=== PATIENT | male | born 1950 | race Caucasian/White ===

== ENCOUNTER → 2023-06-27 06:53 | Outpatient (REF) | payer MEDICARE, OTHER, SELFPAY ==
[2023-06-27 07:35] LABS: % Basophils 0.9 % (0-2); % Immature Granulocytes 0.5 % (0-0.5); % Lymphocytes 22.5 % (20.5-51.1); % Neutrophils 63.1 % (42.2-75.2); Absolute Basophils 0.1 10^3/uL (0-0.2); Absolute Eosinophils 0.3 10^3/uL (0-0.7); Absolute Lymphocytes 1.3 10^3/uL (1.2-3.4); Absolute Monocytes 0.5 10^3/uL (0.1-0.6); Absolute Neutrophils 3.6 10^3/uL (1.4-6.5); Hematocrit 36.8 % (39.0-52.0); Hemoglobin 12.9 g/dL (13.0-18.0); Mean Corp Hgb Conc. 35.1 g/dL (33.0-37.0); Mean Corpuscular Hgb 30.4 pg (27.0-31.0); Mean Corpuscular Volume 86.8 fL (80.0-94.0); Mean Platelet Volume 9.6 fL (7.4-10.4); Nucleated Red Blood Cells % 0 % (-); Platelet Count 132 10^3/uL (130-400); Red Blood Cell Count 4.24 10^6/uL (4.70-6.10); Red Cell Dist. Width 13.7 % (11.5-14.5); White Blood Cell Count 5.8 10^3/uL (4.8-10.8)
[2023-06-27 08:17] LABS: Urine Albumin Trace (Neg - Trace); Urine Bilirubin Negative (Negative); Urine Character Clear (Clear); Urine Color Yellow; Urine Glucose Negative (Negative); Urine Ketone Negative (Negative); Urine Leukocyte Negative (Negative); Urine Nitrite Negative (Negative); Urine Occult Blood Trace (Negative); Urine Specific Gravity 1.015 (<1.030); Urine Urobilinogen 1+ (Neg - 1+)
[2023-06-27 08:46] LABS: Urine Mucus Few
[2023-06-27 08:47] LABS: Urine Hyaline Cast 0-2 /LPF (0-2)
[2023-06-27 08:48] LABS: Urine Bacteria Few (Negative); Urine Red Blood Cell 0-2 /HPF (0-2); Urine White Cell 0-2 /HPF (0-5)
[2023-06-27 09:09] LABS: Glycohemoglobin (HgbA1c) 7.7 % (4.0-5.6)
[2023-06-27 09:23] LABS: ALT (SGPT) 24 U/L (0-50); AST (SGOT) 31 U/L (17-59); Albumin 4.2 g/dl (3.5-5.0); Alkaline Phosphatase 73 U/L (38-126); Blood Urea Nitrogen 24 mg/dl (9-20); Calcium 9.5 mg/dl (8.4-10.2); Carbon Dioxide 24 mmol/L (22-30); Chloride 105 mmol/L (98-107); Glucose 156 mg/dl (70-99); HDL Cholesterol 27 mg/dl; LDL Cholesterol, Calculated 48 mg/dl; Potassium 4.2 mmol/L (3.5-5.1); Sodium 138 mmol/L (135-145); Total Bilirubin 0.7 mg/dl (0.2-1.3); Total Cholesterol 127 mg/dl (50-199); Total Protein 7.1 g/dl (6.3-8.2); Triglyceride 261 mg/dl (10-149); Very Low Density Lipoprotein 52 mg/dl (0-30); eGFR > 60.00
[2023-06-27 09:37] LABS: TSH 3.79 uIU/ml (0.47-4.68)
== END ==
LOC: REG 06:53
PROVIDERS: ATTENDING PHYSICIAN Internal Medicine Cardiovascular Disease; FAMILY PHYSICIAN Internal Medicine Geriatric Medicine
DX: E11.9 Type 2 diabetes mellitus without complications (principal); E78.2 Mixed hyperlipidemia; I25.10 Atherosclerotic heart disease of native coronary artery without angina pectoris; I48.0 Paroxysmal atrial fibrillation; I10 Essential (primary) hypertension
CPT/HCPCS: 36415; 80053; 80061; 81003; 81015; 83036; 84443; 85025

== ENCOUNTER → 2024-01-01 09:06 | Outpatient (REF) | payer MEDICARE, OTHER, SELFPAY | LOC: RCS 09:06 | PROVIDERS: ATTENDING PHYSICIAN Internal Medicine Cardiovascular Disease; FAMILY PHYSICIAN Internal Medicine Geriatric Medicine | DX: I25.10 Atherosclerotic heart disease of native coronary artery without angina pectoris (principal) | CPT/HCPCS: 93306 ==

== ENCOUNTER → 2024-01-08 06:20 | Outpatient (REF) | payer MEDICARE, OTHER, SELFPAY | LOC: RAD 06:20 | PROVIDERS: ATTENDING PHYSICIAN Internal Medicine Cardiovascular Disease; FAMILY PHYSICIAN Internal Medicine Geriatric Medicine | DX: R09.89 Other specified symptoms and signs involving the circulatory and respiratory systems (principal) | CPT/HCPCS: 93880 ==

== ENCOUNTER → 2024-01-14 06:48 | Outpatient (REF) | payer MEDICARE, OTHER, SELFPAY | LOC: RAD 06:48 | PROVIDERS: ATTENDING PHYSICIAN Internal Medicine Cardiovascular Disease; FAMILY PHYSICIAN Internal Medicine Geriatric Medicine | DX: I65.22 Occlusion and stenosis of left carotid artery (principal) | CPT/HCPCS: 70498; Q9967 ==

== ENCOUNTER 2024-01-29 06:20 | Inpatient (IN) | payer MEDICARE, OTHER, SELFPAY ==
[2024-01-29] VITALS (11 sets, daily range): BP systolic 97–130; BP diastolic 51–79; BMI 38.3
[2024-01-29 07:13] LABS: Glucose - Point of Care 198 mg/dl (70-99)
[2024-01-29 08:33] LABS: ACT-LR - POC 273 Seconds (116-155)
[2024-01-29 09:08] LABS: ACT-LR - POC 192 Seconds (116-155)
[2024-01-29 09:16] LABS: ACT-LR - POC 232 Seconds (116-155)
[2024-01-29 09:24] LABS: ACT-LR - POC 261 Seconds (116-155)
--- NOTE | 2024-01-29 09:53 | ITS.CL.ANGIO ---
[employer] - Angioplasty
Angioplasty
Procedure Report:
CAROTID ANGIOGRAM AND ANGIOPLASTY REPORT
Date of Procedure: 01/29/2024
Referring: Marcus Caro MD
Indication: Severe asymptomatic left ICA stenosis
Operators: Lokesh Joe MD, Marcus Caro MD
�
PROCEDURE SUMMARY:
Successful stenting of 80% calcific left ICA stenosis using 10 x 30 mm Cordis precise stent using distal embolic filter protection
�
DESCRIPTION OF PROCEDURE: 5 [place] sheath was placed in the right femoral artery. Heparin 7000 units was administered. Additional heparin was given during the procedure to maintain an acceptable ACT. An HUMBERTO diagnostic 5 [place] catheter was
advanced to the aortic arch. The left common carotid artery was relatively easily engaged; however, we were unable to pass a standard table J-wire around a 90 degree bend in the proximal left common carotid artery and therefore could not advance
the catheter into the midportion of the left common carotid artery. A 0.035 angled Glidewire was advanced into the distal carotid but this would not advancement of the 5 [place] HUMBERTO catheter as it resulted in prolapse of the system back into the
arch. At this point we attempted using a Quijano 2 diagnostic catheter but could not engage the left carotid with this shape. A LesConciergesek 5 [place]ian diagnostic was advanced into the carotid and using a 0.035 supra core wire we were able to advance this
catheter past the 90 degree turn and perform diagnostic angiography. Angiography showed no significant disease in the proximal or mid common carotid artery. The bifurcation was severely diseased and extending into the left ICA. The stenosis
severity was approximately 80%. The external carotid was severely calcified and subtotally occluded at its origin. In order attempt to pass the 0.035 supra core wire through the diagnostic catheter to make and exchanged for a 6 [place] shuttle
sheath, we lost access and had to reengage the left common carotid with the Vitek and advance a supra core wire more distally into the ICA. The diagnostic catheter was carefully withdrawn and a 6 [place] shuttle sheath was advanced to the origin of
the left common carotid artery. With great fortune we were able to get the shuttle sheath past the 90 degree bend and positioned this in the mid to distal common carotid artery. At this point a BMW wire was easily advanced into the ICA and a 6.0
spider filter embolic protection device was advanced over the wire and positioned in the petrous segment of the left ICA. Full expansion of the basket was verified fluoroscopically. The calcified ostial left ICA lesion was predilated with a 3.0 x
20 NC Emerge balloon to 12 edwin. Balloon expansion was complete with no waist on the balloon. The patient tolerated angioplasty well without bradycardia or hypotension. At this point we passed a 10 x 30 mm Cordis precise stent to completely cover
the disease and the calcified area distal to the lesion. The stent was deployed uneventfully then postdilated with a 5 x 30 mm aviator balloon to 12 edwin. Good expansion of the stented the lesion site occurred. Patient had a very fleeting episode
of asystole following postdilatation which resolved in approximately 2 seconds. Blood pressure remained normal for the entirety of the procedure. The filter was recovered uneventfully and final angiography demonstrated an outstanding angiographic
result. Cerebral angiography demonstrated no evidence of distal embolization. At the conclusion of the procedure the patient remained neurologically intact.
�
ANTI-COAGULATION THERAPY
1:�Heparin 7000 units with additional doses of 1002 1000 units
�
Closure Device Used: 6 [place] Angio-Seal RFA
�
Radiation (mGy): 273
DAP (cm2.Gy): 22.4
Fluoroscopy time: 10.3 minutes
�
CONCLUSIONS: Successful stenting of 80% left ICA stenosis using 10 x 30 mm Cordis precise stent. We will treat with triple therapy for 1 week then Plavix and Pradaxa for 12 months after which time the Plavix can be discontinued and aspirin started
�
Copy to: Nicholas Resendez MD and Marcus Caro MD
�
Marcus Caro MD, [facility], [facility]
�
[2024-01-29 11:22] LABS: Glucose - Point of Care 165 mg/dl (70-99)
--- NOTE | 2024-01-29 11:23 | PTCARENOTE ---
Rec'd pt from lab aide. R femoral dsg is c/d/i. No bleeding/hematoma noted. Activity restrictions reviewed w/ pt. Verbalizes understanding. VSS. NIHSS performed w/ lab aide RN. See worklist. Call rochelle w/in reach.
[2024-01-29] MEDS: NOVOLOG FLEXPEN-MODERATE RESISTANCE 1 UNITS SC (11:35)
[2024-01-29 11:40] LABS: ACT-LR - POC > 397 Seconds (116-155)
--- NOTE | 2024-01-29 11:43 | PTCARENOTE ---
Rec'd pt from stores laborer. R femoral dsg is c/d/i. No bleeding/hematoma noted. Activity restrictions reviewed w/ pt. Verbalizes understanding. NIHSS completed w/ stores laborer RN at handoff; WNL. Currently in bed; call rochelle w/in reach.
--- NOTE | 2024-01-29 13:51 | CM ---
Chart reviewed. Patient is independent of ADLS, lives with his in a 2 S[address], 3-4 MATT, 0 DME. Plan is for the patient to return home. CM to follow
[2024-01-29 16:12] LABS: Glucose - Point of Care 141 mg/dl (70-99)
[2024-01-29] MEDS: NOVOLOG FLEXPEN-MODERATE RESISTANCE SC (16:14)
[2024-01-29] MEDS: LIPITOR 80 MG PO (20:49)
[2024-01-29] MEDS: KEPPRA 750 MG PO (20:49)
[2024-01-29] MEDS: ZETIA 10 MG PO (20:50)
[2024-01-29 22:34] LABS: Glucose - Point of Care 155 mg/dl (70-99)
[2024-01-30 04:09] VITALS: BP 101/62
[2024-01-30 04:50] VITALS: BMI 38.3
[2024-01-30] MEDS: SYNTHROID 50 MCG PO (04:56)
[2024-01-30 05:26] LABS: Hematocrit 36.6 % (39.0-52.0); Hemoglobin 12.9 g/dL (13.0-18.0); Mean Corp Hgb Conc. 35.2 g/dL (33.0-37.0); Mean Corpuscular Hgb 30.4 pg (27.0-31.0); Mean Corpuscular Volume 86.3 fL (80.0-94.0); Mean Platelet Volume 9.8 fL (7.4-10.4); Platelet Count 118 10^3/uL (130-400); Red Blood Cell Count 4.24 10^6/uL (4.70-6.10); Red Cell Dist. Width 13.9 % (11.5-14.5); White Blood Cell Count 7.6 10^3/uL (4.8-10.8)
--- NOTE | 2024-01-30 05:33 | PTCARENOTE ---
Pt NSR on monitor, Denies pain or SOB. Rt groin ecchymotic and soft. Pt ambulates independently in the room.
--- NOTE | 2024-01-30 05:35 | DOWNTIME ---
There was a [employer] Department Chair Downtime on 01/30/2024 from 0100 to 01/30/2024 at 0350. Downtime documentation of patient's care, including medication administrations, has been reconciled in the electronic record per guidelines. Refer to the
patient's paper chart under the miscellaneous tab to see printed paper medication records and downtime forms.
[2024-01-30 05:42] LABS: Blood Urea Nitrogen 32 mg/dl (9-20); Calcium 8.9 mg/dl (8.4-10.2); Carbon Dioxide 25 mmol/L (22-30); Chloride 101 mmol/L (98-107); Estimated Creatinine Clearance 71 ml/min; Glucose 179 mg/dl (70-99); HDL Cholesterol 24 mg/dl; LDL Cholesterol, Calculated 35 mg/dl; Sodium 137 mmol/L (135-145); Total Cholesterol 132 mg/dl (50-199); Triglyceride 365 mg/dl (10-149); Very Low Density Lipoprotein 73 mg/dl (0-30); eGFR > 60.00
[2024-01-30 06:54] VITALS: BP 114/62
--- NOTE | 2024-01-30 07:38 | W.PN.UPDATE ---
Update Note
Progress Note Update
Looks and feels great
VSS
lungs clear
cor RR no murmur
Groin ok
Neuro intact
ECG ok
Labs OK, a1c pending
Plan
Home today
Triple Rx (ASA, PLAVIX, PRADAXA for one week then stop ASA)
Carotid USG 4-6 wks
[2024-01-30 08:15] LABS: Glucose - Point of Care 215 mg/dl (70-99)
[2024-01-30] MEDS: PRADAXA 150 MG PO (08:15)
[2024-01-30] MEDS: PLAVIX 75 MG PO (08:15)
[2024-01-30] MEDS: NOVOLOG FLEXPEN-MODERATE RESISTANCE 3 UNITS SC (08:15)
[2024-01-30] MEDS: KEPPRA 750 MG PO (08:15)
[2024-01-30] MEDS: LOW STRENGTH ASPIRIN 81 MG PO (08:15)
[2024-01-30] MEDS: ZYLOPRIM 150 MG PO (08:16)
--- NOTE | 2024-01-30 08:47 | PTCARENOTE ---
IV and tele removed. Belongings collected and sent home w/ pt. Discharge instructions reviewed w/ pt and . Verbalizes understanding. Escorted via wheelchair and staff assist. Discharged to home.
[2024-01-30 09:30] LABS: Glycohemoglobin (HgbA1c) 7.7 % (4.0-5.6)
== END 2024-01-30 08:49 | disposition home or self-care (01) | DRG 36 ==
LOC: IVU 06:20
PROVIDERS: Nurse Practitioner Adult Health; ADMITTING PHYSICIAN Internal Medicine Cardiovascular Disease; FAMILY PHYSICIAN Internal Medicine Geriatric Medicine
PROC: 037L3DZ Dilation of Left Internal Carotid Artery with Intraluminal Device, Percutaneous Approach (ICD-10-PCS; 2024-01-29)
DX: I65.22 Occlusion and stenosis of left carotid artery (principal); I25.10 Atherosclerotic heart disease of native coronary artery without angina pectoris; I10 Essential (primary) hypertension; E78.5 Hyperlipidemia, unspecified; E11.9 Type 2 diabetes mellitus without complications; E03.9 Hypothyroidism, unspecified; G47.33 Obstructive sleep apnea (adult) (pediatric); M10.9 Gout, unspecified; M19.90 Unspecified osteoarthritis, unspecified site; I44.0 Atrioventricular block, first degree; Z79.899 Other long term (current) drug therapy; Z95.1 Presence of aortocoronary bypass graft; Z79.84 Long term (current) use of oral hypoglycemic drugs; Z79.890 Hormone replacement therapy; Z87.891 Personal history of nicotine dependence
CPT/HCPCS: 37215; 80048; 80061; 82962; 83036; 85027; 85347; 93005; C1725; C1760; C1769; C1876; C1884; C1894; Q9967

== ENCOUNTER → 2024-03-07 07:00 | Outpatient (REF) | payer MEDICARE, OTHER, SELFPAY | LOC: RAD 07:00 | PROVIDERS: ATTENDING PHYSICIAN Nurse Practitioner; FAMILY PHYSICIAN Internal Medicine Geriatric Medicine | DX: Z95.828 Presence of other vascular implants and grafts (principal); I25.10 Atherosclerotic heart disease of native coronary artery without angina pectoris; I48.0 Paroxysmal atrial fibrillation; I10 Essential (primary) hypertension | CPT/HCPCS: 93880 ==

== ENCOUNTER → 2024-07-01 06:41 | Outpatient (REF) | payer MEDICARE, OTHER, SELFPAY ==
[2024-07-01 08:24] LABS: % Basophils 0.5 % (0-2); % Eosinophils 2.9 % (0-6); % Immature Granulocytes 0.2 % (0-0.5); % Lymphocytes 21.2 % (20.5-51.1); % Monocytes 7.8 % (1.7-9.3); % Neutrophils 67.4 % (42.2-75.2); Absolute Eosinophils 0.2 10^3/uL (0-0.7); Absolute Lymphocytes 1.3 10^3/uL (1.2-3.4); Absolute Monocytes 0.5 10^3/uL (0.1-0.6); Absolute Neutrophils 4.3 10^3/uL (1.4-6.5); Hematocrit 41.5 % (39.0-52.0); Hemoglobin 14.5 g/dL (13.0-18.0); Mean Corp Hgb Conc. 34.9 g/dL (33.0-37.0); Mean Corpuscular Volume 85.9 fL (80.0-94.0); Mean Platelet Volume 9.4 fL (7.4-10.4); Nucleated Red Blood Cells % 0 % (-); Platelet Count 150 10^3/uL (130-400); Red Blood Cell Count 4.83 10^6/uL (4.70-6.10); Red Cell Dist. Width 13.9 % (11.5-14.5); White Blood Cell Count 6.3 10^3/uL (4.8-10.8)
[2024-07-01 08:50] LABS: ALT (SGPT) 24 U/L (0-50); AST (SGOT) 25 U/L (17-59); Albumin 4.1 g/dl (3.5-5.0); Alkaline Phosphatase 68 U/L (38-126); Blood Urea Nitrogen 25 mg/dl (9-20); Calcium 9.5 mg/dl (8.4-10.2); Carbon Dioxide 26 mmol/L (22-30); Chloride 104 mmol/L (98-107); Glucose 155 mg/dl (70-99); HDL Cholesterol 29 mg/dl; LDL Cholesterol, Calculated 61 mg/dl; Potassium 4.3 mmol/L (3.5-5.1); Sodium 141 mmol/L (135-145); Total Bilirubin 0.8 mg/dl (0.2-1.3); Total Cholesterol 143 mg/dl (50-199); Total Protein 7.4 g/dl (6.3-8.2); Triglyceride 265 mg/dl (10-149); Very Low Density Lipoprotein 53 mg/dl (0-30); eGFR > 60.00
[2024-07-01 11:05] LABS: Glycohemoglobin (HgbA1c) 6.8 % (4.0-5.6)
== END ==
LOC: REG 06:41
PROVIDERS: ATTENDING PHYSICIAN Student in an Organized Health Care Education/Training Program; FAMILY PHYSICIAN Internal Medicine Geriatric Medicine
DX: E78.2 Mixed hyperlipidemia (principal); I25.10 Atherosclerotic heart disease of native coronary artery without angina pectoris; E11.9 Type 2 diabetes mellitus without complications
CPT/HCPCS: 36415; 80053; 80061; 83036; 85025

== ENCOUNTER → 2024-08-18 06:48 | Outpatient (REF) | payer MEDICARE, OTHER, SELFPAY ==
[2024-08-18 07:48] LABS: Uric Acid 7.5 mg/dl (3.5-8.5)
[2024-08-18 12:16] LABS: Microalbumin, Random Urine 11.5 mg/dl (0.6-1.7)
== END ==
LOC: REG 06:48
PROVIDERS: ATTENDING PHYSICIAN Internal Medicine Geriatric Medicine
DX: E11.9 Type 2 diabetes mellitus without complications (principal); E66.01 Morbid (severe) obesity due to excess calories; M18.31 Unilateral post-traumatic osteoarthritis of first carpometacarpal joint, right hand; R56.9 Unspecified convulsions; I10 Essential (primary) hypertension; E03.8 Other specified hypothyroidism; I48.0 Paroxysmal atrial fibrillation; G47.33 Obstructive sleep apnea (adult) (pediatric); I25.10 Atherosclerotic heart disease of native coronary artery without angina pectoris; E55.9 Vitamin D deficiency, unspecified
CPT/HCPCS: 36415; 82043; 82570; 84439; 84443; 84550

== ENCOUNTER → 2024-09-15 06:53 | Outpatient (REF) | payer MEDICARE, OTHER, SELFPAY ==
[2024-09-15 08:35] LABS: PSA, Total - Diagnostic 2.13 ng/ml (0.0-4.0)
== END ==
LOC: REG 06:53
PROVIDERS: ATTENDING PHYSICIAN Specialist; FAMILY PHYSICIAN Internal Medicine Geriatric Medicine
DX: N40.1 Benign prostatic hyperplasia with lower urinary tract symptoms (principal)
CPT/HCPCS: 36415; 84153

== ENCOUNTER → 2024-10-01 06:29 | Outpatient (REF) | payer MEDICARE, OTHER, SELFPAY | LOC: RAD 06:29 | PROVIDERS: ATTENDING PHYSICIAN Surgery Vascular Surgery; FAMILY PHYSICIAN Internal Medicine Geriatric Medicine | DX: Z13.6 Encounter for screening for cardiovascular disorders (principal) | CPT/HCPCS: 76770 ==

== ENCOUNTER → 2024-10-02 12:43 | Outpatient (REF) | payer MEDICARE, OTHER, SELFPAY | LOC: DHVS 12:43 | PROVIDERS: ATTENDING PHYSICIAN Surgery Vascular Surgery; FAMILY PHYSICIAN Internal Medicine Geriatric Medicine | DX: I65.23 Occlusion and stenosis of bilateral carotid arteries (principal) | CPT/HCPCS: 93880 ==